=== PATIENT | male | born 1955 | race Caucasian/White ===

== ENCOUNTER → 2016-03-09 | Outpatient (CLI) | payer BC ==
[~2016-03-09] MED LIST: ASPI81TA28 PO; ATEN50TA8 PO; ATOR-22 PO; AVP150 PO; CHOL100010 PO; CHOL2000 PO; COMBIGEN OPB; CYAN10005 PO; CYCL10TA6 PO; DXY50 PO; ESCI1TAB10 PO; GLC850 PO; IBUP-1050 PO; INSPMPNVLG INJ; IRBE-39 PO; KFLUNK PO; LORA-741 PO; LRTUNK PO; LYSI100010 PO; LYSINE PO; MECL1TAB40 PO; MELO15TA4 PO; MELO7.5T5 PO; ONDA4TAB46 PO; PANT40TA PO; PRLSR20 PO; TRAV0.00 OP; TRIA37.5 PO; VALA1TAB2 PO
[2016-03-09 17:16] LABS: THYROID STIMULATING HORMONE 2.44 uIu/ml (0.300-4.500)
[2016-03-10 06:41] LABS: ESTIMATED AVERAGE GLUCOSE 154 mg/dl; HA1C FLAG Normal (Normal)
== END | disposition home or self-care (01) ==
LOC: C.LABBC 14:18
PROVIDERS: ATTEND Internal Medicine Endocrinology, Diabetes & Metabolism
DX: E11.49 Type 2 diabetes mellitus with other diabetic neurological complication (principal)

== ENCOUNTER → 2016-09-10 | Outpatient (CLI) | payer BC ==
[2016-09-10 10:37] LABS: BASO % 0.4 %; BASO ABS # 0.04 K/uL (0-0.2); COMPLETE YES; EOS % 1.5 %; HEMATOCRIT 46.9 % (42-52); IG% 0.3 %; LYMPH % 19.3 %; LYMPH ABS # 1.77 K/uL (1.2-3.4); MEAN CORPUSCULAR HEMOGLOBIN 27.1 pg (25-34); MEAN CORPUSCULAR HGB CONC 32.6 g/dl (32-36); MEAN PLATELET VOLUME 12.1 fL (7.4-10.4); MONO % 7.1 %; NEUT % 71.4 %; PLATELET COUNT 289 K/uL (130-400); RED BLOOD COUNT 5.65 M/uL (4.7-6.1); WHITE BLOOD COUNT 9.18 K/uL (4.8-10.8)
[2016-09-10 12:01] LABS: ESTIMATED AVERAGE GLUCOSE 206 mg/dl; HA1C FLAG Normal (Normal)
[2016-09-10 12:28] LABS: ALT/SGPT 52 U/L (12-78); BLOOD UREA NITROGEN 24 mg/dl (7-18); BUN/CREATININE RATIO 22.2 (10-20); CALCIUM 8.7 mg/dl (8.5-10.1); CARBON DIOXIDE 26 mmol/L (21-32); CHLORIDE 101 mmol/L (98-107); CHOLESTEROL 121 mg/dl (0-200); CHOLESTEROL/HDL RATIO 3.6; GLUCOSE 238 mg/dl (70-99); HDL CHOLESTEROL 34 mg/dl; LDL CHOLESTEROL CALCULATED 42 mg/dl; POTASSIUM 4.1 mmol/L (3.5-5.1); SODIUM 137 mmol/L (136-145); TRIGLYCERIDES 227 mg/dl (0-150); VERY LOW DENSITY LIPOPROT CALC 45 mg/dl
[2016-09-10 12:30] LABS: ALB/GLOB RATIO 1.1 (0.9-2); ALKALINE PHOSPHATASE 102 U/L (45-117); AST/SGOT 23 U/L (15-37)
[2016-09-10 13:34] LABS: RATIO 19.8 mcg/mg (0-30.0)
--- NOTE | 2016-09-14 08:50 | CODING QUERY MEDICAL NECESSITY ---
SUPPORTING DIAGNOSIS NEEDED Dr. Cruz, A supporting diagnosis is required for the test/procedure performed on this patient in order for us to be reimbursed by the patient's insurance. Please provide a supporting diagnosis for the following test/procedure listed below next to the test name along with your signature. *If there is no additional diagnosis for this patient that would support the following test/procedure please document that below next to the test/procedure. Test(s)/Procedure(s) that require a supporting diagnosis: * 32059 PSA DIAGNOSIS: DATE OF SERVICE: 09/10/16 Provider Signature: Date: Thank you Denis Shelton [facility] Information Management Once completed, please kindly fax back to [phone] For questions please call [phone]
== END | disposition home or self-care (01) ==
LOC: C.LABBC 07:28
PROVIDERS: ATTEND Internal Medicine
DX: Z11.59 Encounter for screening for other viral diseases (principal); E11.9 Type 2 diabetes mellitus without complications; E55.9 Vitamin D deficiency, unspecified; Z12.5 Encounter for screening for malignant neoplasm of prostate

== ENCOUNTER 2016-10-01 07:28 | Emergency (ER) | payer BC ==
[~2016-10-01] VITALS: Ht 180.3 cm; Wt 114.5 kg
[~2016-10-01 07:28] MED LIST changes: -ASPI81TA28 PO; -ATOR-22 PO; -CHOL2000 PO; -CYAN10005 PO; -CYCL10TA6 PO; -ESCI1TAB10 PO; -INSPMPNVLG INJ; -IRBE-39 PO; -LORA-741 PO; -LYSI100010 PO; -MECL1TAB40 PO; -MELO15TA4 PO; -ONDA4TAB46 PO; -PANT40TA PO; -TRAV0.00 OP; -TRIA37.5 PO; -VALA1TAB2 PO
[2016-10-01 07:37] VITALS: TEMP 36.7; Ht 180.3 cm; Wt 114.5 kg
--- NOTE | 2016-10-01 07:55 | EMERGENCY ROOM VISIT NOTE ---
History Report prepared by Jose M: Amirah Peters Under the Supervision of: Dr. Evan Carvalho M.D. First contact with patient: 07:43 Chief Complaint: WRIST PAIN Stated Complaint: LEFT WRIST History of Present Illness The patient is a 61 year old male who presents to the Emergency Room with complaints of constant left wrist pain. The patient reports that 2 weeks ago, he fell and caught himself, and has had wrist pain ever since. The patient rates the pain at a 4.5/10. He does not report having elbow pain. He states that he has a history of falls because of an inner ear problem which he is following ENT with. He denies having other symptoms. Source of History: patient Onset: 2 weeks ago Position: wrist (left) Symptom Intensity: rated at a 4.5/10 Quality: other (fall) Timing: constant Review of Systems See HPI for pertinent positives & negatives. A total of 10 systems reviewed and were otherwise negative. Past Medical & Surgical Medical Problems: (1) Diabetes (2) Hypertension Family History ALS (amyotrophic lateral sclerosis) FH: Parkinson's disease Hypertension Social History Smoking Status: Former Smoker Marital Status: Housing Status: lives with family Current/Historical Medications Scheduled Aspirin (Aspirin Ec), 81 MG PO DAILY Atenolol (Tenormin), 50 MG PO DAILY Atorvastatin (Lipitor), 20 MG PO DAILY Cholecalciferol (Vitamin D3), 2,000 UNITS PO DAILY Cyanocobalamin (Vitamin B-12), 1,000 MCG PO DAILY Escitalopram Oxalate (Lexapro), 20 MG PO DAILY Insulin Aspart (novoLOG INSULIN PUMP ), 1 DOSE INJ UD Irbesartan (Avapro), 300 MG PO DAILY Lysine Hcl (Lysine), 1,000 MG PO DAILY Metformin HCl (Metformin HCl), 850 MG PO BID Pantoprazole (Protonix), 40 MG PO DAILY Travoprost (Travatan Z), 1 DROPS OP HS Triamterene/Hctz (Dyazide 37.5MG/25MG), 1 TAB PO QAM Scheduled PRN Cyclobenzaprine Hcl (Flexeril), 5 MG PO TID PRN for Muscle Spasms Lorazepam (Ativan), 0.5 MG PO TID PRN for Anxiety Meclizine HCl (Meclizine HCl), 12.5-25 MG PO TID PRN for Dizziness or Vertigo Meloxicam (Mobic), 15 MG PO DAILY PRN for Pain Ondansetron Hcl (Zofran), 4 MG PO Q6 PRN for Nausea Valacyclovir Hcl (Valtrex), 2,000 MG PO BID PRN for PRN Allergies Coded Allergies: Ciprofloxacin (Verified Allergy, Intermediate, KIDNEY PAIN;RED SKIN, ) Baclofen (Verified Adverse Reaction, Intermediate, RED SKIN, 10/01/16) Erythromycin (Verified Adverse Reaction, Mild, ITCHY RED SKIN, 10/01/16) Physical Exam Vital Signs Date Time Temp Pulse Resp B/P (MAP) Pulse Ox O2 Delivery O2 Flow Rate FiO2 10/01/16 09:01 56 18 152/99 99 10/01/16 07:37 36.7 61 18 145/91 95 Room Air Physical Exam GENERAL: Patient is a healthy-appearing well-nourished male HEAD: Normocephalic atraumatic EYES: Ocular movements intact pupils equal and react to light OROPHARYNX mucous membranes are moist no exudates present no erythema or edema present NECK: Supple no nuchal rigidity CHEST: Good equal expansion LUNGS: Clear and equal to auscultation CARDIAC: Normal S1 and S2 ABDOMEN: Soft nontender no guarding BACK: No CVA tenderness EXTREMITIES: Pain to medial side of left wrist. Neurovascularly intact. Good ROM to elbow and wrist. NEURO: Patient is following commands and answering questions appropriately. Alert and oriented x3 Cranial Nerves 2-12 grossly intact Medical Decision & Procedures ER Provider Diagnostic Interpretation: X-ray results as stated below per interpretation by me and the radiologist: LEFT WRIST MIN 3 VIEWS ROUTINE CLINICAL HISTORY: Pt c/o left wrist pain pain COMPARISON: None. DISCUSSION: Findings suggestive of old cortical fracture distal ulna. No acute bony abnormality. No significant joint effusion or soft tissue edema. There is no evidence for soft tissue swelling. IMPRESSION: No acute process. Findings suggesting an old fracture distal ulna The above report was generated using voice recognition software. It may contain grammatical, syntax or spelling errors. Electronically signed by: Derick Andrea M.D. 10/01/2016 8:33 AM Dictated Date/Time: 10/01/2016 8:22 AM ED Course 0745: Past medical records reviewed. The patient was evaluated in room B3B. A complete history and physical examination was performed. 0830: Upon reexamination the patient is resting. I discussed results and treatment plan with the patient. He verbalizes agreement and understanding. The patient is ready for discharge. Medical Decision Differentials include: fracture, dislocation, and subluxation. This is a 7-year-old male who presents emergency department complaining of wrist pain that has been ongoing since a fall 2 weeks ago. Patient was sent for an x-ray and I do believe that the patient most likely fractured his arm 2 weeks ago. He was placed in an orthopedic splint. I recommended close follow- up with his surgeon. The patient did not want any pain medication I recommended Tylenol 1000 every 6 hours. Patient was in agreement with the treatment plan. Medication Reconcilliation Current Medication List: was personally reviewed by me Blood Pressure Screening Patient's blood pressure: Elevated blood pressure Blood pressure disposition: Referred to PCP Impression Primary Impression: Ulna distal fracture Scribe Attestation The scribe's documentation has been prepared under my direction and personally reviewed by me in its entirety. I confirm that the note above accurately reflects all work, treatment, procedures, and medical decision making performed by me. Departure Information Dispostion Home / Self-Care Referrals Konrad Cruz M.D. (PCP) Terry Simeon M.D. Forms HOME CARE DOCUMENTATION FORM, IMPORTANT VISIT INFORMATION, WORK / SCHOOL INSTRUCTIONS Patient Instructions ED Fx Upper Ext, My [facility] Additional Instructions Follow up with DR Simeon's office You were found to have an elevated blood pressure today (>120 sytolic or >90 diastolic). Per medicare guidelines, you need to follow up with this blood pressure screening with your Primary Care Physician (PCP). For a new PCP call [phone]. You have been examined and treated today on an emergency basis only. This is not a substitute for, or an effort to provide, complete comprehensive medical care. It is impossible to recognize and treat all injuries or illnesses in a single emergency department visit. It is therefore important that you follow up closely with Dr Cruz. Call as soon as possible for an appointment. Thank you for your time and consideration. I look forward to speaking with you again soon. Please don't hesitate to call us if you have any questions. Problem Qualifiers Primary Impression: Ulna distal fracture Encounter type: initial encounter Fracture type: closed Fracture morphology : unspecified fracture morphology Laterality: left Qualified Codes: S52.602A - Unspecified fracture of lower end of left ulna, initial encounter for closed fracture
--- NOTE | 2016-10-01 08:34 | DIAGNOSTIC IMAGING REPORT ---
LEFT WRIST MIN 3 VIEWS ROUTINE CLINICAL HISTORY: Pt c/o left wrist pain pain COMPARISON: None. DISCUSSION: Findings suggestive of old cortical fracture distal ulna. No acute bony abnormality. No significant joint effusion or soft tissue edema. There is no evidence for soft tissue swelling. IMPRESSION: No acute process. Findings suggesting an old fracture distal ulna The above report was generated using voice recognition software. It may contain grammatical, syntax or spelling errors. Electronically signed by: Derick Andrea M.D. 10/01/2016 8:33 AM Dictated Date/Time: 10/01/2016 8:22 AM
[2016-10-01] MEDS ORDERED: ESCI1TAB10 PO (08:39)
[2016-10-01] MEDS ORDERED: CYAN10005 PO (08:39)
[2016-10-01] MEDS ORDERED: PANT40TA PO (08:39)
[2016-10-01] MEDS ORDERED: INSPMPNVLG INJ (08:39)
[2016-10-01] MEDS ORDERED: ONDA4TAB46 PO (08:39)
[2016-10-01] MEDS ORDERED: LORA-741 PO (08:39)
[2016-10-01] MEDS ORDERED: TRAV0.00 OP (08:39)
[2016-10-01] MEDS ORDERED: MECL1TAB40 PO (08:39)
[2016-10-01] MEDS ORDERED: GLC850 PO (08:39)
[2016-10-01] MEDS ORDERED: CHOL2000 PO (08:39)
[2016-10-01] MEDS ORDERED: ATOR-22 PO (08:39)
[2016-10-01] MEDS ORDERED: LYSI100010 PO (08:39)
[2016-10-01] MEDS ORDERED: ASPI81TA28 PO (08:39)
[2016-10-01] MEDS ORDERED: TRIA37.5 PO (08:39)
[2016-10-01] MEDS ORDERED: IRBE-39 PO (08:39)
[2016-10-01] MEDS ORDERED: VALA1TAB2 PO (08:39)
[2016-10-01] MEDS ORDERED: CYCL10TA6 PO (08:39)
[2016-10-01] MEDS ORDERED: MELO15TA4 PO (08:39)
[2016-10-01] MEDS ORDERED: ATEN50TA8 PO (08:39)
[2016-10-01 09:01] VITALS: BP 152/99; PULSE 56; O2SAT 99
== END 2016-10-01 09:02 | disposition home or self-care (01) ==
LOC: C.EDB 07:30
DX: S52.602A Unspecified fracture of lower end of left ulna, initial encounter for closed fracture (principal); W19.XXXA Unspecified fall, initial encounter; I10 Essential (primary) hypertension; E11.9 Type 2 diabetes mellitus without complications; Z87.891 Personal history of nicotine dependence; Z79.82 Long term (current) use of aspirin; Z79.4 Long term (current) use of insulin; Z79.84 Long term (current) use of oral hypoglycemic drugs; Z91.81 History of falling; Z82.49 Family history of ischemic heart disease and other diseases of the circulatory system; Z82.0 Family history of epilepsy and other diseases of the nervous system

== ENCOUNTER → 2016-12-09 | Outpatient (CLI) | payer BC ==
[~2016-12-09] MED LIST changes: +ASPI81TA28 PO; +ATOR-22 PO; -AVP150 PO; -CHOL100010 PO; +CHOL2000 PO; -COMBIGEN OPB; +CYAN10005 PO; +CYCL10TA6 PO; -DXY50 PO; +ESCI1TAB10 PO; -IBUP-1050 PO; +INSPMPNVLG INJ; +IRBE-39 PO; +KETO10TA PO; -KFLUNK PO; +LORA-741 PO; -LRTUNK PO; +LYSI100010 PO; -LYSINE PO; +MECL1TAB40 PO; +MELO15TA4 PO; -MELO7.5T5 PO; +ONDA4TAB46 PO; +OXYC-57 PO; +PANT40TA PO; -PRLSR20 PO; +TRAV0.00 OPB; +TRIA37.5 PO; +VALA1TAB2 PO
[2016-12-09 14:37] LABS: BASO % 0.4 %; BASO ABS # 0.05 K/uL (0-0.2); COMPLETE YES; EOS % 1.7 %; IG% 0.4 %; LYMPH % 24.8 %; LYMPH ABS # 2.93 K/uL (1.2-3.4); MEAN CELL VOLUME 82.7 fL (80-100); MEAN CORPUSCULAR HGB CONC 33.8 g/dl (32-36); MEAN PLATELET VOLUME 12.4 fL (7.4-10.4); MONO % 7.5 %; NEUT % 65.2 %; PLATELET COUNT 314 K/uL (130-400); RED BLOOD COUNT 5.68 M/uL (4.7-6.1)
[2016-12-09 14:58] LABS: BLOOD UREA NITROGEN 15 mg/dl (7-18); CARBON DIOXIDE 29 mmol/L (21-32); CHLORIDE 101 mmol/L (98-107); CREATININE 1.27 mg/dl (0.60-1.40); GLUCOSE 182 mg/dl (70-99); POTASSIUM 4.4 mmol/L (3.5-5.1); SODIUM 136 mmol/L (136-145)
== END | disposition home or self-care (01) ==
LOC: C.LAB1850 13:03
PROVIDERS: ATTEND Orthopaedic Surgery
DX: M75.122 Complete rotator cuff tear or rupture of left shoulder, not specified as traumatic (principal)

== ENCOUNTER → 2017-04-23 | Outpatient (CLI) | payer BC ==
[~2017-04-23] MED LIST changes: -CYCL10TA6 PO; -GLC850 PO; -MELO15TA4 PO; +METF850T10 PO
[2017-04-23 13:28] LABS: BASO % 0.5 %; BASO ABS # 0.06 K/uL (0-0.2); EOS % 1.8 %; EOS ABS # 0.21 K/uL (0-0.5); HEMATOCRIT 47.9 % (42-52); HEMOGLOBIN 16.1 g/dL (14.0-18.0); IG# 0.04 K/uL (0.00-0.02); LYMPH % 23.5 %; LYMPH ABS # 2.72 K/uL (1.2-3.4); MEAN CELL VOLUME 81.5 fL (80-100); MEAN CORPUSCULAR HEMOGLOBIN 27.4 pg (25-34); MEAN CORPUSCULAR HGB CONC 33.6 g/dl (32-36); MEAN PLATELET VOLUME 12.4 fL (7.4-10.4); MONO % 7.2 %; MONO ABS # 0.83 K/uL (0.11-0.59); NEUT % 66.7 %; NEUT ABS # 7.72 K/uL (1.4-6.5); PLATELET COUNT 334 K/uL (130-400); RED CELL DISTRIBUTION WIDTH CV 14.2 % (11.5-14.5); WHITE BLOOD COUNT 11.58 K/uL (4.8-10.8)
[2017-04-23 14:26] LABS: ALT/SGPT 60 U/L (12-78); BLOOD UREA NITROGEN 17 mg/dl (7-18); CALCIUM 9.5 mg/dl (8.5-10.1); CARBON DIOXIDE 29 mmol/L (21-32); GLUCOSE 140 mg/dl (70-99); POTASSIUM 4.1 mmol/L (3.5-5.1); SODIUM 135 mmol/L (136-145)
[2017-04-23 14:28] LABS: ALKALINE PHOSPHATASE 95 U/L (45-117); AST/SGOT 39 U/L (15-37); TOTAL PROTEIN 7.6 gm/dl (6.4-8.2)
[2017-04-24 07:43] LABS: HEMOGLOBIN A1C 8.3 % (4.5-5.6)
== END | disposition home or self-care (01) ==
LOC: C.LABBC 12:17
PROVIDERS: ATTEND Internal Medicine
DX: E11.9 Type 2 diabetes mellitus without complications (principal); R10.814 Left lower quadrant abdominal tenderness

== ENCOUNTER → 2017-05-04 | Outpatient (CLI) | payer BC ==
--- NOTE | 2017-05-04 11:54 | DIAGNOSTIC IMAGING REPORT ---
ABDOMEN FOR HERNIA CLINICAL HISTORY: ABDOMINAL TENDERNESS pain. Nodule. TECHNIQUE: Ultrasound left inguinal region COMPARISON STUDY: None FINDINGS: Pre and post Valsalva shows the presence of a very small reducible fat-containing left inguinal hernia. No evidence for bowel containment. No hernia or mass over the region which is patient directed/site of clinical discomfort. IMPRESSION: Very small reducible fat-containing left inguinal hernia. No ultrasonic abnormality specifically over the patient directed site of discomfort. The above report was generated using voice recognition software. It may contain grammatical, syntax or spelling errors. Electronically signed by: Derick Andrea M.D. 05/04/2017 11:53 AM Dictated Date/Time: 05/04/2017 11:51 AM
== END | disposition home or self-care (01) ==
LOC: C.ULTRBC 09:02
PROVIDERS: ATTEND Internal Medicine
DX: R10.814 Left lower quadrant abdominal tenderness (principal)

== ENCOUNTER → 2017-05-11 | Outpatient (CLI) | payer BC ==
--- NOTE | 2017-05-11 08:44 | DIAGNOSTIC IMAGING REPORT ---
ULTRASOUND LEFT GROIN NONVASCULAR CLINICAL HISTORY: Inguinal hernia. COMPARISON STUDY: Ultrasound of left groin dated 05/04/2017. FINDINGS: Real-time grayscale sonography of the left groin is performed to assess for inguinal hernia. There is a small reducible fat-containing left inguinal hernia, not significantly changed from 05/04/2017. There is no bowel or fluid within the hernia sac. No left inguinal adenopathy is seen. IMPRESSION: There is a small reducible fat-containing left inguinal hernia. Electronically signed by: Denver Roberts M.D. 05/11/2017 8:43 AM Dictated Date/Time: 05/11/2017 8:42 AM
== END | disposition home or self-care (01) ==
LOC: C.ULTRBC 07:53
PROVIDERS: ATTEND Internal Medicine
DX: R10.814 Left lower quadrant abdominal tenderness (principal); K40.90 Unilateral inguinal hernia, without obstruction or gangrene, not specified as recurrent

== ENCOUNTER → 2017-05-18 | Day surgery (SDC) | payer BC ==
[2017-05-14 09:16] VITALS: Ht 180.3 cm; Wt 115.9 kg
[~2017-05-18] VITALS: Ht 180.3 cm; Wt 115.9 kg
[~2017-05-18] MED LIST changes: +ATROPINE SULFATE 0.1 MG/ML 5ML SYR IV PRN; +BUPIVACAINE/EPINEPHRINE 0.5% MPF 1:200,000 30 ML VIAL ONE; +CEFAZOLIN 2000MG IV PUSH 15 ML IV SCH; +EpHEDrine SULFATE INJ 50 MG/ML AMP IV PRN; +EpHEDrine SULFATE INJ 50 MG/ML AMP ONE; +FENTANYL CITRATE INJ 50 MCG/1 ML 2 ML VIAL ONE; +FLUMAZENIL 0.1 MG/1 ML 10 ML VIAL IV PRN; +GLYCOPYRROLATE INJ 0.2 MG/ML VIAL ONE; +HYDROmorphone INJ 2 MG/ML SYR/VIAL IV PRN; +IBUPROFEN 600 MG TAB PO PRN; -KETO10TA PO; +KETOROLAC TROMETHAMINE 30 MG/ML VIAL IV. PRN; +LABETALOL HCL IV 5 MG/ML 20ML IV PRN; +LACTATED RINGER'S 1000ML 1,000 ML IV SCH; +LIDOCAINE HCL 2% 2 ML VIAL (20MG/ML) ONE; +MEPERIDINE HCL 25 MG/ML CARP IV PRN; +MIDAZOLAM HCL 1 MG/ML 2ML VIAL ONE; +MoRPHine SULFATE 2 MG/ML CARP IV PRN; +MoRPHine SULFATE 4 MG/ML 1 ML CARP\\VIAL IV PRN; +NALOXONE HCL 0.4 MG/1 ML VIAL/CARP IV PRN; +NEOSTIGMINE METHYLSULFATE 5 MG/5 ML SYR ONE; +ONDANSETRON INJ 2 MG/ML 2 ML VIAL IV PRN; +ONDANSETRON INJ 2 MG/ML 2 ML VIAL ONE; +OXYCODONE/ACETAMINOPHEN 5-325 TAB PO PRN; +PHENYLEPHRINE 100MCG/ML 5ML SYR IV PRN; +PROPOFOL IV EMULSION 10 MG/ML 20 ML VIAL IV ONE; +ROCURONIUM BROMIDE 10 MG/ML 5 ML VIAL IV ONE; +SCOPOLAMINE 1.5 MG TDSY TD ONE; +SODIUM CHLORIDE 0.9% 1000ML 1,000 ML IV SCH; +SODIUM CHLORIDE 0.9% INJ 10 ML VIAL ONE
--- NOTE | 2017-05-18 10:24 | History & Physical Bridge Note ---
H&P Re-Evaluation Bridge Note: I have examined the patient, reviewed the History & Physical and in the interval since the performance of the History & Physical I have noted the following changes of clinical significance: No changes noted. will perform left inguinal hernia repair with mesh, umbilical hernia repair, and patient has requested that a lower abdominal wall lipoma be excised as well.
--- NOTE | 2017-05-18 10:37 | Discharge Instructions-SurgCtr ---
Discharge Instructions Date of Service May 18, 2017. Visit Reason for Visit: Left Inguinal Hernia, Umbilical Hernia Discharge Discharge Diagnosis / Problem: inguinal hernia; umbilical hernia;abdominal wall lipoma Discharge Goals Goal(s): Decrease discomfort, Improve function Medications Stopped Medications Name(s): Metformin, last dose 05/15/17, ASA 81mg, last dose 05/12/17 Activity Recommendations Activity Limitations: as noted below Lifting Limitations: no more than 10 pounds Exercise/Sports Limitations: until after follow-up appointment May Resume Sexual Activity: after follow-up appointment Shower/Bathe: tomorrow Anesthesia . Post Anesthesia Instructions: If you have had General Anesthesia or IV Sedation: * Do not drive today. * Resume driving when surgeon permits. * Do not make important decisions or sign legal documents today. * Call surgeon for: 1. Temperature elevations greater than 101 degrees F. 2. Uncontrollable pain. 3. Excessive bleeding. 4. Persistent nausea and vomiting. 5. Medication intolerance (nausea, vomiting or rash). * For nausea and vomiting use only clear liquids such as: tea, soda, bouillon until nausea subsides, then gradually increase diet as tolerated. * If you have any concerns or questions, call your surgeon's office. If physician is unavailable and it is an emergency, call 911 or go to the nearest emergency room. . Instructions / Follow-Up Instructions / Follow-Up follow up with Dr. Orantes in 1-2 weeks. call [phone] for follow up appointment if you don't have one or if you have any concerns/questions. Diet Recommendations Home Diet: resume previous diet Procedures Procedures Performed: 1. left inguinal hernia repair 2. umbilical hernia repair 3. excision of abdominal wall lipoma. Pending Studies Studies pending at discharge: no Medical Emergencies . Who to Call and When: Medical Emergencies: If at any time you feel your situation is an emergency, please call 911 immediately. . Non-Emergent Contact Non-Emergency issues call your: Primary Care Provider, Surgeon Call Non-Emergent contact if: temperature is above 101, wound has increased drainage, wound has increased redness, wound has increased pain . . "Provider Documentation" section prepared by Thee Orantes. .
--- NOTE | 2017-05-18 12:34 | [facility] Post Operative Brief Note ---
Immediate Operative Summary Operative Date May 18, 2017. Pre-Operative Diagnosis Left Inguinal Hernia, Umbilical Hernia, abdominal wall lipoma Post-Operative Diagnosis same Procedure(s) Performed 1. left inguinal hernia repair with mesh 2. umbilical hernia repair 3. excision of abdominal wall lipoma Surgeon Dr. Orantes Orthopaedic Physician Assistant Surgeon(s) none Estimated Blood Loss 10 cc Findings Consistent with Post-Op Diagnosis Specimens A) Abdominal Wall Lipoma Anesthesia Type General Complication(s) none
--- NOTE | 2017-05-18 12:50 | [facility] Operative Report ---
Operative Report Operative Date May 18, 2017. Pre-Operative Diagnosis Left Inguinal Hernia, Umbilical Hernia, abdominal wall lipoma Post-Operative Diagnosis same Procedure(s) Performed 1. left inguinal hernia repair with mesh 2. umbilical hernia repair 3. excision of abdominal wall lipoma Surgeon Dr. Orantes Swage Tender Surgeon(s) none Estimated Blood Loss 10 cc Specimens A) Abdominal Wall Lipoma Anesthesia Type General Complication(s) none Description of Procedure After informed consent was obtained the patient was taken the operating room and placed in supine position. After successful placement of the laryngeal mask airway the groin was shaved and sterilely prepped and draped in usual fashion. I began with the abdominal wall lipoma. I made a horizontal incision directly over the visible lesion and carried this down through the soft tissue using electrocautery. We encountered an encapsulated lipoma which was easily excised with traction and electrocautery. It was sent to pathology. Wound was irrigated and closed using 3-0 Vicryl and 4-0 Monocryl. Marcaine was injected around and Dermabond glue used as a dressing. Next I made an infraumbilical curvilinear incision. This was also carried down through the soft tissue using electrocautery until we got down to the anterior fascia. I then used a Melonie clamp to come around the superior aspect of the umbilicus. I took down the umbilical stalk using electrocautery revealing approximately 1 cm hernia defect. There was some preperitoneal fat incarcerated in it so I excised this fat and discarded it. I then used a #1 Ethibond in interrupted [id number] fashion to primarily close the fascial defect. Once the hernia was repaired I thoroughly irrigated the wound. I replaced the umbilicus back down to the fascia using 0 Vicryl. I then closed the deep layers using 3-0 Vicryl and the skin was closed using 4-0 Monocryl. Marcaine was injected around this as well and Dermabond glue used as a dressing. An inguinal incision was made with a 15 blade scalpel and carried down through the soft tissue using electrocautery. The external oblique aponeurosis was skeletonized. A fresh blade was used to make an incision and then Metzenbaum scissors were used to extend this distally through the external ring as well as for several centimeters proximally. Once in the inguinal canal I used blunt finger dissection to free up the cord and cord structures. I was able to gently tease the cord off of the pubic bone and placed a Silas drain around it. Once I did this I noted the patient had a direct hernia that was easily reducible. We inspected the cord and cord structures using blunt dissection with small amounts of electrocautery. Eventually we were able to identify a small hernia sac. We dissected this back to its neck and then dunked it back into the abdominal cavity. It was able to stay self reduced. We then thoroughly irrigated the wound. I used a polypropylene garcia-holed mesh as an onlay. It was secured distally to Gabriel's ligament, laterally along the shelving portion of Poupart's ligament and medially along the midline musculature. 0 Ethibond was used for the suturing. The "arms" of the mesh were wrapped around behind the cord and cord structures and again secured to underlying muscle. The mesh laid nice and flat and tension-free and did not impinge on the cord structures themselves. We thoroughly irrigated the wound. There was adequate hemostasis. I injected Marcaine around the edges of the mesh for postoperative analgesia. We then closed the external oblique aponeurosis with 2-0 Vicryl in a running fashion. Soft tissue was irrigated and closed in multiple layers using 3-0 Vicryl for the deep layers and 4-0 Monocryl for the skin. Some additional Marcaine was injected around the skin incision. We then used a skin glue as a dressing. The patient was awaken extubated and transferred to recovery in stable condition. . I attest to the content of the Intraoperative Record and any orders documented therein. Any exceptions are noted below. I attest to the content of the Intraoperative Record and any orders documented therein. Any exceptions are noted below.
[2017-05-18] MEDS: FENTANYL CITRATE INJ 50 MCG/1 ML 2 ML VIAL IV PRN ×2 (13:06→13:13)
--- NOTE | 2017-05-18 13:13 | Anesthesia Progress Nt - [facility] ---
Anesthesia Post Op Note Date & Time May 18, 2017 at 13:13 Vital Signs Pain Intensity: 4.0 Vital Signs Past 12 Hours Date Time Temp Pulse Resp B/P (MAP) Pulse Ox O2 Delivery O2 Flow Rate FiO2 05/18/17 12:49 36.2 93 20 160/88 98 Mask 6 05/18/17 09:29 36.7 70 18 140/93 (109) 95 Room Air Notes Mental Status: alert / awake / arousable, participated in evaluation Pt Amnestic to Procedure: Yes Nausea / Vomiting: adequately controlled Pain: adequately controlled Airway Patency, RR, SpO2: stable & adequate BP & HR: stable & adequate Hydration State: stable & adequate Anesthetic Complications: no major complications apparent
[2017-05-18 13:47] VITALS: TEMP 36.4
[2017-05-18 14:19] VITALS: BP 127/79; PULSE 82; O2SAT 95
== END | disposition home or self-care (01) ==
LOC: X.SURG 09:17
PROVIDERS: ATTEND Surgery
DX: K40.90 Unilateral inguinal hernia, without obstruction or gangrene, not specified as recurrent (principal); K42.9 Umbilical hernia without obstruction or gangrene; F41.9 Anxiety disorder, unspecified; R41.840 Attention and concentration deficit; M19.90 Unspecified osteoarthritis, unspecified site; E11.49 Type 2 diabetes mellitus with other diabetic neurological complication; E11.40 Type 2 diabetes mellitus with diabetic neuropathy, unspecified; E78.5 Hyperlipidemia, unspecified; K21.9 Gastro-esophageal reflux disease without esophagitis; H40.9 Unspecified glaucoma; H91.90 Unspecified hearing loss, unspecified ear; I10 Essential (primary) hypertension; H81.90 Unspecified disorder of vestibular function, unspecified ear; E66.9 Obesity, unspecified; E55.9 Vitamin D deficiency, unspecified; Z90.89 Acquired absence of other organs; Z82.49 Family history of ischemic heart disease and other diseases of the circulatory system; Z82.3 Family history of stroke; Z80.0 Family history of malignant neoplasm of digestive organs; Z82.0 Family history of epilepsy and other diseases of the nervous system; Z87.891 Personal history of nicotine dependence; Z79.82 Long term (current) use of aspirin; Z96.41 Presence of insulin pump (external) (internal); Z79.84 Long term (current) use of oral hypoglycemic drugs; Z88.8 Allergy status to other drugs, medicaments and biological substances; Z88.1 Allergy status to other antibiotic agents; Z86.718 Personal history of other venous thrombosis and embolism